=== PATIENT | female | born 1980 | race Caucasian/White ===

== ENCOUNTER → 2021-05-30 09:16 | Outpatient (CLI) | payer OTHER, SELFPAY ==
[2021-05-30 09:51] LABS: Cholesterol 176 mg/dL (200); Glucose 92 mg/dL (74-106); High Density Lipoprotein 73 mg/dL; Triglycerides 107 mg/dL; Very Low Density Lipoprotein 21 mg/dL (5-40)
== END ==
PROVIDERS: PCP Family Medicine
DX: Z13.6 Encounter for screening for cardiovascular disorders (principal); Z13.1 Encounter for screening for diabetes mellitus
CPT/HCPCS: 36415; 80061; 82947

== ENCOUNTER 2022-04-02 16:04 | Emergency (ER) | payer OTHER, SELFPAY ==
[2022-04-02 16:05] VITALS: BP 140/88; PULSE 72; RESP 16; TEMP 37.1; O2SAT 100; BMI 25.8
--- NOTE | 2022-04-02 16:18 | VDLE_ITS ---
Reason For Study: pain RIGHT CFV is compressible, spontaneous, phasic, competent and demonstrates normal augmentation. FV is compressible, spontaneous, phasic, competent and demonstrates normal augmentation. POP V is compressible, spontaneous, phasic, competent and demonstrates normal augmentation. T/P Trunk is compressible. PTV is compressible. RT PerV is compressible. Short segment of the GSV in the groin is dilated and noncompressible. SVT is not near the S-F Junction. Varicose veins below the knee are dilated and noncompressible. Procedure This is a venous duplex using B-mode, color flow and spectral Doppler. Exam performed portable in ED. The exam was abbreviated due to the COVID 19 protocol. The exam was diagnostic. A preliminary report was called and/or faxed to Dr. Cortez. VL/Venous Duplex US, Unilateral Interpretation Summary Superficial thrombophlebitis right great saphenous vein in the right groin Superficial thrombophlebitis varicose veins right below knee Abbreviated Covid 19 protocol Ordering Physician: Joselo Cortez Performed By: Danilo Mane RVT
--- NOTE | 2022-04-02 16:21 | EDS_ITS ---
HPI History of Present Illness Chief Complaint: Lower Extremity Injury Informant: patient Narrative Narrative: 41-year-old female presenting to the emergency department with left calf pain. Patient states that she recently took a car ride to [place] and back again. She had developed pain behind her knee when she returned that is now moved down to the calf. Now today she notes some swelling and some redness in the calf region. She denies any significant swelling. No personal history of DVT or PE. She states her father had pulmonary embolisms with he had lung cancer. PFSH PFSH Medical History no medical history Home Medications apixaban 2.5 mg tablet (Eliquis) 2.5 mg PO BID #90 tabs 04/02/22 [Rx Last Taken Unknown] Allergy/AdvReac Type Severity Reaction Status Date / Time cefaclor [From Ceclor] Allergy Hives Verified 04/02/22 16:08 ciprofloxacin [From Cipro] Allergy Hives Verified 04/02/22 16:08 ofloxacin [From Floxin] Allergy Hives Verified 04/02/22 16:08 Social History (Updated 04/02/22 @ 16:[address] Joselo Cortez, DO) current gender identity: female Smoking Status: Never smoker ROS ROS ED Constitutional Constitutional ED: Denies chills or weight loss Eyes Eyes: Denies change in vision or diplopia ENT ENT ED: Denies ear pain, rhinorrhea or sore throat Cardiovascular Cardiovascular: Denies chest pain, orthopnea, palpitations or racing heartbeat Respiratory/Chest Respiratory/Chest: Denies cough, dyspnea or orthopnea Gastrointestinal Gastrointestinal: Denies abdominal pain, diarrhea, nausea or vomiting Genitourinary Genitourinary ED: Denies dysuria, hematuria or urinary frequency Musculoskeletal Musculoskeletal: Reports other Details: Left calf pain ; Denies arthralgias or myalgias Integumentary Reports rash; Denies abscess Neurologic Neurologic: Denies headache(s) or weakness Psychiatric Psychiatric: Denies anxiety, depression, suicidal ideation or suicidal thoughts Endocrine Endocrinology: Denies polydipsia, polyphagia or polyuria Allergic/Immunologic Allergic/Immunologic ED: Denies mouth swelling, tongue swelling or urticaria EXAM Physical Exam Const Vital Signs: 04/02/22 16:05 Temperature 98.8 F Temperature Source Temporal Pulse Rate 72 Respiratory Rate 16 Blood Pressure 140/88 H Blood Pressure Mean 105 Pulse Ox 100 Oxygen Delivery Method Room Air Positive well nourished and well developed General Appearance ED: well developed HEENT Reports normocephalic, head/scalp atraumatic and moist mucous membranes Eyes PERRL and EOMs intact bilaterally Neck no lymphadenopathy, supple and no JVD Resp normal respiratory effort and clear to auscultation bilaterally Cardio regular rate, regular rhythm and no murmurs GI normal to inspection, nondistended, normoactive bowel sounds and non-tender Palpation: soft Back/Spine no CVA tenderness and normal ROM Extremity Extremity Narrative: Located on the medial aspect of the right calf is an area of erythema increased warmth and mild swelling. It has mild tenderness to palpation. Do not appreciate significant swelling at the ankles when comparing to the left. General Extremety ED: Negative for edema General Extremity: Negative for edema Neuro oriented x3 and CN's II-XII intact bilaterally Sensorium / Orientation: alert Motor Exam: strength 5/5 throughout Psych mental status grossly normal Mood & Affect: Negative for depressed or tearful Skin no wounds Trauma: Negative for abrasion or laceration MDM MDM MDM Narrative Medical decision making narrative: Duplex ultrasound demonstrates superficial thrombophlebitis of the calf. There is also a segment approximately 5 cm long of the greater saphenous vein that is clotted. This is farther than 3 cm away from the femoral vein. Using up-to-date, the expert consensus is prophylactic dose of anticoagulant for 45 days. I will also set her up for an ultrasound to be done on Friday for comparison. Follow-up with primary care Discharge Plan Triage Chief Complaint: Lower Extremity Injury ED Provider: Joselo Cortez Dx/Rx/DC Orders Clinical Impression: Superficial thrombophlebitis, Greater saphenous vein embolism Instructions: ED Thrombophlebitis, Superficial Prescriptions: New Eliquis 2.5 mg tablet 2.5 mg PO BID Qty: 90 0RF Other Ambulatory Orders: Venous Duplex US, Unilateral (Routine) Facility: [facility] - Location: [facility] Ordered By: Dr. Joselo Cortez ON-CALL NEEDED: Notify [facility] - Doppler Study Ordered (Stat) Location: None Selected Ordered By: Dr. Joselo Cortez Primary Care Provider: Sami Walter Referrals: Sami Walter MD [Primary Care Provider] - 1 Week Disposition Disposition: Home, Self Care
== END 2022-04-02 17:05 | disposition home or self-care (01) ==
PROVIDERS: Emergency Provider Emergency Medicine; PCP Family Medicine; Visit Provider Emergency Medicine
DX: I82.811 Embolism and thrombosis of superficial veins of right lower extremity (principal)
CPT/HCPCS: 93971; 99282

== ENCOUNTER → 2022-04-05 | Outpatient (CLI) | payer OTHER, SELFPAY ==
--- NOTE | 2022-04-05 12:46 | VDLE_ITS ---
Reason For Study: pain RIGHT CFV is compressible, spontaneous, phasic, competent and demonstrates normal augmentation. FV is compressible, spontaneous, phasic, competent and demonstrates normal augmentation. POP V is compressible, spontaneous, phasic, competent and demonstrates normal augmentation. T/P Trunk is compressible. PTV is compressible. RT PerV is compressible. GSV is compressible from prox thigh to SFJ & from low mid thigh to ankle. GSV is partially compressible at prox thigh to mid thigh. Procedure This is a venous duplex using B-mode, color flow and spectral Doppler. Exam performed in department. The exam was diagnostic. A preliminary report was called and/or faxed to Dr. Walter (PCP) @ [phone] @ 1:15pm. VL/Venous Duplex US, Unilateral Interpretation Summary There is no evidence of right lower extremity deep vein thrombosis. Superficial thrombophlebitis right great saphenous vein proximal to mid thigh. Findings suggest improvement since April 02, 2022 Ordering Physician: Joselo Cortez Referring Physician: Sami Walter Performed By: Alisha Scruggs, YENNI, RVT
== END | disposition home or self-care (01) ==
PROVIDERS: PCP Family Medicine; Referring Provider Emergency Medicine; Visit Provider Emergency Medicine
DX: M79.604 Pain in right leg (principal)
CPT/HCPCS: 93971

== ENCOUNTER → 2022-12-02 | Outpatient (CLI) | payer OTHER, SELFPAY ==
--- NOTE | 2022-12-02 10:40 | BI_ITS ---
MAMMOGRAPHY - BILATERAL SCREENING REASON FOR EXAM: Female, 42 years old. Routine annual screening examination. PERTINENT HISTORY: Grandmother with breast cancer. TECHNIQUE: Digital bilateral breast roger (3D mammographic acquisition) in the CC and MLO projections. 2-D mediolateral oblique (MLO) and craniocaudad (CC) views of both breasts were obtained. CAD: Full Field Digital Mammography with Computer Added Detection was performed. COMPARISON: Comparison is made with prior outside examination of November 27, 2021. FINDINGS: Breast Composition: The breasts are extremely dense, which lowers the sensitivity of mammography. There are no dominant masses or suspicious calcifications. Stable benign appearing bilateral axillary lymph nodes. No other significant abnormalities are identified. There has been no significant change since the prior study. BI/SCRN MAMM (CAD)W/ROGER BILAT IMPRESSION: Stable bilateral screening mammogram. Yearly follow-up mammogram recommended. (A) ASSESSMENT CATEGORY: BIRADS Category 2: Benign. A letter regarding these results will be sent to the patient by the facility within 30 days. Approximately 10% of breast cancers are not detected by mammography. A normal mammogram should not delay biopsy of a clinically suspicious abnormality. [id number] Electronically Signed: Demetri Baker MD at 14:02 EDT ,
== END | disposition home or self-care (01) ==
LOC: OPBI 10:38
PROVIDERS: PCP Family Medicine
DX: Z12.31 Encounter for screening mammogram for malignant neoplasm of breast (principal); Z80.3 Family history of malignant neoplasm of breast
CPT/HCPCS: 77063; 77067

== ENCOUNTER → 2023-01-27 | Outpatient (CLI) | payer OTHER, SELFPAY ==
[2023-01-27 10:44] LABS: Absolute Neutrophil Count 6.2 X10^3/uL (2.0-7.7); Basophil# 0.07 X10^3/uL; Basophil% 0.8 % (0-1); Eosinophil# 0.06 X10^3/uL; Eosinophils% 0.7 % (0-5); Hematocrit 39.1 % (37-47); Hemoglobin 12.8 g/dL (12.0-15.0); Lymphocyte % 22.9 % (19-41); Mean Corp Hgb Conc 32.7 g/dL (32-36); Mean Corpuscular Volume 85.6 fL (81-99); Mean Platelet Vol. 12.1 fl (6.2-12.0); Monocyte# 0.68 X10^3/uL; Monocyte% 7.4 % (0-10); NRBC Flagged by Analyzer 0 % (0-5); Neutrophil # 6.23 X10^3/uL (2.7-7.7); Platelet Count 265 K/mm3 (150-450); RBC Distribution Width CV 16.2 % (11.6-14.6); RBC Distribution Width SD 50.4 fl (35.1-43.9); Red Blood Count 4.57 M/mm3 (4.2-5.4); White Blood Count 9.2 K/mm3 (4.4-11.0)
[2023-01-27 12:10] LABS: hCG Titer Quant., Serum < 1 mIU/mL (1-3)
[2023-01-27 12:24] LABS: Estradiol 188.6 pg/mL; Follicle Stimulating Hormone 5.6 mIU/mL; Luteinizing Hormone 2.7 mIU/mL; Prolactin 5.9 ng/mL; T4 Free Direct 1.02 ng/dL (0.76-1.46); Thyroid Stim Hormone (TSH) 0.76 uIU/mL (0.358-3.74)
[2023-01-30 15:08] LABS: Testosterone, % Free 1.31 % (0.50-2.80); Testosterone, Free 0.25 ng/dL (0.10-0.85); Testosterone, Total 19 ng/dL (4-50)
== END | disposition home or self-care (01) ==
LOC: WOBLAB 10:30
PROVIDERS: PCP Family Medicine; Visit Provider Nurse Practitioner Women's Health
DX: N93.9 Abnormal uterine and vaginal bleeding, unspecified (principal)
CPT/HCPCS: 36415; 82670; 83001; 83002; 84146; 84402; 84403; 84439; 84443; 84702; 85025

== ENCOUNTER → 2023-07-17 | Outpatient (CLI) | payer OTHER, SELFPAY ==
[2023-07-17 09:43] LABS: Anion Gap 0 (5-15); BUN 13 mg/dL (7-18); BUN/Creat Ratio 14.4 RATIO (10-20); Calcium,Total 8.5 mg/dL (8.5-10.1); Chloride 109 mmol/L (98-107); Cholesterol 176 mg/dL (200); EST Glomerular Filtration Rate 72 mL/min (>60); Est Glom Filt Rate - Afr Amer 87 mL/min (>60); Glucose 85 mg/dL (74-106); High Density Lipoprotein 62 mg/dL; Potassium 3.8 mmol/L (3.5-5.1); Sodium Level 139 mmol/L (136-145); Triglycerides 58 mg/dL; Very Low Density Lipoprotein 12 mg/dL (5-40)
== END | disposition home or self-care (01) ==
LOC: PAVLAB 09:03
PROVIDERS: PCP Family Medicine
DX: Z00.00 Encounter for general adult medical examination without abnormal findings (principal); Z13.1 Encounter for screening for diabetes mellitus; Z13.6 Encounter for screening for cardiovascular disorders
CPT/HCPCS: 36415; 80048; 80061

== ENCOUNTER → 2023-12-10 | Outpatient (CLI) | payer OTHER, SELFPAY ==
--- NOTE | 2023-12-10 14:12 | BI_ITS ---
MAMMOGRAPHY - BILATERAL SCREENING REASON FOR EXAM: Female, 43 years old. Routine annual screening examination. PERTINENT HISTORY: Grandmother with breast cancer. TECHNIQUE: Digital bilateral breast roger (3D mammographic acquisition) in the CC and MLO projections. 2-D mediolateral oblique (MLO) and craniocaudad (CC) views of both breasts were obtained. CAD: Full Field Digital Mammography with Computer Added Detection was performed. COMPARISON: Comparison is made with prior examination dated December 02, 2022. FINDINGS: Breast Composition: The breasts are extremely dense, which lowers the sensitivity of mammography. There are no dominant masses or suspicious calcifications. No other significant abnormalities are identified. There has been no significant change since the prior study. BI/SCRN MAMM (CAD)W/ROGER BILAT IMPRESSION: Stable bilateral screening mammogram. Yearly follow-up mammogram recommended. (A) ASSESSMENT CATEGORY: BIRADS Category 1: Negative. A letter regarding these results will be sent to the patient by the facility within 30 days. Approximately 10% of breast cancers are not detected by mammography. A normal mammogram should not delay biopsy of a clinically suspicious abnormality. [id number] Electronically Signed: Demetri Baker MD at 15:19 EDT ,
== END | disposition home or self-care (01) ==
LOC: OPBI 14:10
PROVIDERS: PCP Family Medicine
DX: Z12.31 Encounter for screening mammogram for malignant neoplasm of breast (principal)
CPT/HCPCS: 77063; 77067

== ENCOUNTER → 2024-07-05 | Outpatient (CLI) | payer OTHER, SELFPAY ==
[2024-07-13 11:10] LABS: HPV APTIMA, High Risk Negative (Negative)
== END | disposition home or self-care (01) ==
LOC: LABSPEC 16:54
PROVIDERS: PCP Internal Medicine; Referring Provider Obstetrics & Gynecology; Visit Provider Obstetrics & Gynecology
DX: Z12.4 Encounter for screening for malignant neoplasm of cervix (principal)
CPT/HCPCS: 87624; 88175; G0145

== ENCOUNTER 2024-08-18 10:51 | Day surgery (SDC) | payer OTHER, SELFPAY ==
[2024-08-18] VITALS (8 sets, daily range): BP systolic 96–120; BP diastolic 62–94; PULSE 70–95; RESP 16–18; TEMP 36.4–37.1; O2SAT 98–100; BMI 25.7
--- NOTE | 2024-08-18 11:01 | PCM.PRE.AN2 ---
ASA Classification* ASA Classification ASA Classification: 2 Assessment & Plan Anesthesia* Anesthesia Assessment Anesthesia Assessment: Discussed sedation and/or anesthesia options, risks, benefits, and alternatives with patient/parents/legal guardian/POA. Questions invited. The patient/parents/legal guardian/POA seems to understand and agrees to proceed with anesthesia plan. Reviewed the physical assessment, medical history, allergy history and patient home medications list prior to surgery/procedure/anesthetic and documented any changes. Performed airway and anesthesia risk assessments. Anesthesia Type Anesthesia Type: MAC Anesthesia Focused Assessment* Airway Assessment Mouth opens: >3 cm Mallampati Score: II Focused Labs Anesthesia Preop lab: CBC WBC 6.8 K/mm3 (4.4-11.0) 06/07/24 14:55 RBC 3.90 M/mm3 (4.2-5.4) L 06/07/24 14:55 Hgb 10.8 g/dL (12.0-15.0) L 06/07/24 14:55 Hct 34.8 % (37-47) L 06/07/24 14:55 Plt Count 302 K/mm3 (150-450) 06/07/24 14:55 CHEMISTRY Potassium 4.3 mmol/L (3.5-5.1) 06/07/24 14:55 Sodium 139 mmol/L (136-145) 06/07/24 14:55 Phosphorus 1.9 mg/dL (2.5-4.9) L 06/07/24 14:55 BUN 15 mg/dL (7-18) 06/07/24 14:55 Creatinine 0.93 mg/dL (0.55-1.02) 06/07/24 14:55 Glucose 102 mg/dL (74-106) 06/07/24 14:55 TSH 0.76 uIU/mL (0.358-3.74) 01/27/23 10:31 COAG HCG, Quant < 1 mIU/mL (1-3) 01/27/23 10:31 Pre-Assessment Diagnosis/Proposed Procedure Planned Operative Procedure(s): CSCOPE OA Anesthesia History Anesthesia History - healthcare representative: Anesthesia History - healthcare representative Hx Hospitalization No 08/13/24 15:07 Any Problems With Anesthesia No 08/13/24 15:07 Cholinesterase deficiency No 08/13/24 15:07 You/Your Family Experience No 08/13/24 15:07 fever (hyperthermia) with Relationship Recent Exposure to Contagious Disease Does patient have nerve No 08/13/24 15:07 stimulator Patient instructed to have device shut off --Does patient have Pacemaker or ICD? When Was Last Pacemaker Check QUESTION #4 FULL TEXT: You/Your Family Experience fever (hyperthermia) with Anesthesia Last Oral Intake Last Oral intake: Last Oral Intake NPO since Meds taken in AM with sips of water? Meds patient instructed to take am of surgery PONV PONV - healthcare representative: PONV - healthcare representative Female Yes 08/13/24 15:07 HX of Motion Sickness No 08/13/24 15:07 HX of N/V After Surgery No 08/13/24 15:07 Non-Smoker Yes 08/13/24 15:07 Duration of Surgery greater No 08/13/24 15:07 than 60 minutes Number of Risk Factors 2 08/13/24 15:07 PONV Score Moderate Risk 08/13/24 15:07 Height & Weight Height & Weight: Anesthesia: Height & Weight Height 5 ft 6 in 07/05/24 15:30 Respiratory Assessment Respiratory Assessment - healthcare representative: Respiratory Tract Infection Hx - healthcare representative Hx Respiratory Tract Infection No 08/13/24 15:07 STOP Sleep Apnea STOP Sleep Apnea - healthcare representative: STOP Sleep Apnea - healthcare representative Hx Hypertension No 08/13/24 15:07 Hx Sleep Apnea No 08/13/24 15:07 CPAP BIPAP Do you snore loudly (louder No 08/13/24 15:07 than talking or can be heard Do you often feel tired/ No 08/13/24 15:07 fatigued/ sleepy during daytime? Has anyone observed you stop No 08/13/24 15:07 breathing during sleep? STOP Results Negative 08/13/24 15:07 QUESTION #5 FULL TEXT : Do you snore loudly (louder than talking or can be heard through closed doors)? 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 Specify any problems Hx of Preganancy in last 3 No 08/13/24 15:07 Months Nurse Filling Out Transfusion DSCHRIBER 08/13/24 15:07 & Questions: Date: 08/13/24 08/13/24 15:07 Time: 15:08 08/13/24 15:07 Patient unable to answer at this time (ie. confused, unrespo /Reproduction History /Reproductive History - healthcare representative: /Reproductive Hx- healthcare representative Hx Now No 08/13/24 15:07 Gestational Age (in weeks): EDC: Hx Hx Para Hx Section SAB No 08/13/24 15:07 PFSH Medical History Wears glasses Alcohol use Back pain Migraine headache Non-smoker Encounter to establish care Superficial vein thrombosis Family history of AML (acute myeloid leukemia) Preventative health care Colon cancer screening Jaundice Viral hepatitis DVT (deep venous thrombosis) Home Medications ?Medication ?Instructions ?Recorded ?Last Taken ?Type aspirin 81 mg tablet,delayed 81 mg PO DAILY 07/06/23 Unknown History release (Adult Aspirin Regimen) fluticasone propionate 50 1 spray intranasal DAILY PRN 07/06/23 Unknown History mcg/actuation nasal allergy symptoms spray,suspension Allergy/AdvReac Type Severity Reaction Status Date / Time cefaclor (From Ceclor) Allergy Hives Verified 08/13/24 15:06 ciprofloxacin (From Cipro) Allergy Hives Verified 08/13/24 15:06 ofloxacin (From Floxin) Allergy Hives Verified 08/13/24 15:06 Family History Mother Rheumatoid arthritis Leukemia Essential thrombocytopenia Father Lung cancer Grandfather Myocardial infarction, Onset Age: 66 Surgical History H/O adenoidectomy History of tonsillectomy Social History adopted: No household members: spouse and children current occupational status: employed current occupation: [employer], [employer] pets and animals: Yes (1) pets and animals: dog(s) history of recent travel: No sexually active: Yes Smoking Status: Never smoker alcohol intake: current alcohol intake frequency: a few times a month details: 2 per week substance use type: does not use caffeine: Yes (2) Type: coffee what type of physical activity do you participate in: running frequency: 3-4 times per week javid/rastafari: Yazidi seatbelt use: always do you feel safe at home: Yes additional social history: - Michael Review of Systems (Anesthesia) ROS Narrative System reviewed and no additional complaints, except as documented.
[2024-08-18 11:33] LABS: Internal QC Validated? YES +Cl - CLEAR BKGD; Pregnancy, Urine Negative Negative
--- NOTE | 2024-08-18 12:44 | PCM.HP.STD ---
[facility] - General General Date of Admission: 08/18/24 Date of Service: 08/18/24 Chief Complaint: Screening colonoscopy HPI Narrative SANG VELASQUEZ, is a 44 F who presents today for for screening colonoscopy. She has no significant past medical history and does not take any medicines on a daily basis. [facility] Medical History Wears glasses Alcohol use Back pain Migraine headache Non-smoker Encounter to establish care Superficial vein thrombosis Family history of AML (acute myeloid leukemia) Preventative health care Colon cancer screening Jaundice Viral hepatitis DVT (deep venous thrombosis) Home Medications ?Medication ?Instructions ?Recorded ?Last Taken ?Type aspirin 81 mg tablet,delayed 81 mg PO DAILY 07/06/23 Unknown History release (Adult Aspirin Regimen) fluticasone propionate 50 1 spray intranasal DAILY PRN 07/06/23 Unknown History mcg/actuation nasal allergy symptoms spray,suspension Allergy/AdvReac Type Severity Reaction Status Date / Time cefaclor (From Ceclor) Allergy Hives Verified 08/18/24 11:08 ciprofloxacin (From Cipro) Allergy Hives Verified 08/18/24 11:08 ofloxacin (From Floxin) Allergy Hives Verified 08/18/24 11:08 Family History Mother Rheumatoid arthritis Leukemia Essential thrombocytopenia Father Lung cancer Grandfather Myocardial infarction, Onset Age: 66 Surgical History H/O adenoidectomy History of tonsillectomy Social History adopted: No household members: spouse and children current occupational status: employed current occupation: [employer], [employer] pets and animals: Yes (1) pets and animals: dog(s) history of recent travel: No sexually active: Yes Smoking Status: Never smoker alcohol intake: current alcohol intake frequency: a few times a month details: 2 per week substance use type: does not use caffeine: Yes (2) Type: coffee what type of physical activity do you participate in: running frequency: 3-4 times per week javid/sabianism: Faith seatbelt use: always do you feel safe at home: Yes additional social history: - Michael ROS Constitutional Constitutional: Denies fatigue, fever(s), poor appetite, weight gain or weight loss Gastrointestinal Gastrointestinal: Denies belching, bloating, change in bowel habits, change in stool character, chewing difficulty, coffee ground emesis, constipation, cramping, diarrhea, dyspepsia, dysphagia, early satiety, excessive flatus, fecal incontinence, heartburn, hematemesis, hematochezia, hemorrhoids, loose stools, melena, nausea, odynophagia, rectal bleeding, tenesmus, vomiting or weight changes Vital Signs Vital Signs Vital Signs: 08/18/24 11:09 08/18/24 11:09 Temperature 98.7 F Temperature Source Temporal Pulse Rate 95 Respiratory Rate 16 Respiratory Pattern Normal Blood Pressure 120/82 H Blood Pressure Mean 94 Blood Pressure Source Monitor Blood Pressure Position Semi-Fowlers Blood Pressure Location Left Arm Pulse Ox 100 Oxygen Delivery Method Room Air Weight Weight: 159 lb Body Mass Index (BMI) 25.7 Physical Exam Const alert, oriented x3, no apparent distress and healthy appearing General Appearance: cooperative GI normal to inspection, nondistended, normoactive bowel sounds, soft to palpation, non-tender and non-distended Percussion: normal to percussion Rectal Exam: deferred Results Lab / Micro Data Labs: Laboratory Results - last 24 hr 08/18/24 11:00: Urine Test Negative Assessment & Plan Assessment/Plan (1) Colon cancer screening: PLAN: 44-year-old comes in for screening colonoscopy. Patient was explained alternatives, risk, benefits including not withstanding bleeding, infection, sepsis, perforation, need for emergent surgery and . Patient will have an ASA of 3.
--- NOTE | 2024-08-18 13:07 | OP.CCLET_ITS ---
08/18/2024 Kassandra Wilkins MD [address] [place] [address] [place] [address] Re : Colonoscopy procedure for Maisha Arauz Dear Dr. Wilkins This procedure was performed on Sunday, August 18, 2024. My impressions and recommendations are as follows: Impressions : - The entire examined colon is normal on direct and retroflexion views. - No specimens collected. Recommendations : - Discharge patient to home. - Resume previous diet today. - Continue present medications. - Repeat colonoscopy in 10 years for screening purposes. My findings are described in the full procedure note, which is enclosed. If I can be of further assistance, please feel free to contact me at . Sincerely, Antoni Friend, 08/18/2024 1:07:07 PM This report has been signed electronically.
--- NOTE | 2024-08-18 13:07 | OP.COLON_ITS ---
Patient Name: Maisha Arauz Procedure Date: 08/18/2024 12:48 PM Date of : 1980 Age: 44 Procedure: Colonoscopy Indications: Screening for colorectal malignant neoplasm Providers: Antoni Carroll DO Referring MD: Kassandra Wilkins MD Medicines: Monitored Anesthesia Care Patient Profile: This is a 44 year old female. Refer to note in patient chart for documentation of history and physical. Last Colonoscopy: none. The patient's first colonoscopy is today. Complications: No immediate complications. Procedure: Pre-Anesthesia Assessment: - Prior to the procedure, a History and Physical was performed, and patient medications and allergies were reviewed. The patient is competent. The risks and benefits of the procedure and the sedation options and risks were discussed with the patient. All questions were answered and informed consent was obtained. Patient identification and proposed procedure were verified by the physician in the pre-procedure area. Mental Status Examination: alert and oriented. Airway Examination: normal oropharyngeal airway and neck mobility. Respiratory Examination: clear to auscultation. CV Examination: normal. Prophylactic Antibiotics: The patient does not require prophylactic antibiotics. Prior Anticoagulants: The patient has taken no anticoagulant or antiplatelet agents except for NSAID medication. ASA Grade Assessment: II - A patient with mild systemic disease. After reviewing the risks and benefits, the patient was deemed in satisfactory condition to undergo the procedure. The anesthesia plan was to use monitored anesthesia care (MAC). Immediately prior to administration of medications, the patient was re-assessed for adequacy to receive sedatives. The heart rate, respiratory rate, oxygen saturations, blood pressure, adequacy of pulmonary ventilation, and response to care were monitored throughout the procedure. The physical status of the patient was re-assessed after the procedure. After I obtained informed consent, the scope was passed under direct vision. Throughout the procedure, the patient's blood pressure, pulse, and oxygen saturations were monitored continuously. The Colonoscope was introduced through the anus and advanced to the cecum, identified by appendiceal orifice and ileocecal valve. The colonoscopy was performed without difficulty. The patient tolerated the procedure well. The quality of the bowel preparation was adequate. The ileocecal valve, appendiceal orifice, and rectum were photographed. Scope In: 12:53:34 PM Scope Out: 1:02:42 PM Total Procedure Duration Time 0 hours 9 minutes 8 seconds Findings: The perianal and digital rectal examinations were normal. The entire examined colon appeared normal on direct and retroflexion views. Impression: - The entire examined colon is normal on direct and retroflexion views. - No specimens collected. Recommendation: - Discharge patient to home. - Resume previous diet today. - Continue present medications. - Repeat colonoscopy in 10 years for screening purposes. Procedure Code(s): --- Professional --- G0121, Colorectal cancer screening; colonoscopy on individual not meeting criteria for high risk CPT copyright 2021 [employer]. All rights reserved. The codes documented in this report are preliminary and upon concrete mason review may be revised to meet current compliance requirements. Antoni Carroll DO 08/18/2024 1:07:07 PM This report has been signed electronically. Number of Addenda: 0 Note Initiated On: 08/18/2024 12:48 PM
--- NOTE | 2024-08-18 13:11 | PCM.POST.ANE ---
Anesthesia: Postop Eval I Current Vital Signs Temperature: 97.8 F Pulse Rate: 70 Blood Pressure: 96/71 Respiratory Rate: 18 Pulse Ox: 100 Oxygen Delivery Method: Room Air Assessment Airway patent: Yes Spontaneous unlabored respirations: Yes Mental status: Asleep nausea: No Vomiting: No Anesthesia Complication: No Fluid Hydration Crystalloid volume administer (ml): 60 Total IV fluid infused: 60 Progress Note Anesthesia document: Postop Eval 1 completed: Yes
--- NOTE | 2024-08-18 13:42 | PCM.POSTANE2 ---
Anesthesia Postop Eval I Sum Postop Eval Completion status Anesthesia document: Postop Eval 1 completed: Yes Anesthesia Postop Eval I Summary Anesthesia Postop Eval I Summary: Anesthesia Postop Eval I: Assessment Summary Airway patent Yes 08/18/24 13:12 [email or web address] Spontaneous unlabored Yes 08/18/24 13:12 [email or web address] respirations Mental status Asleep 08/18/24 13:12 [email or web address] nausea No 08/18/24 13:12 [email or web address] Vomiting No 08/18/24 13:12 [email or web address] Anesthesia Postop Eval I: Fluid Summary Crystalloid volume administer 60 08/18/24 13:12 [email or web address] (ml) Colloids volume administered ( ml) Blood Product volume administered (ml) Total IV fluid infused 60 08/18/24 13:12 [email or web address] Anesthesia Postop Eval I: Summary Notes Anesthesia Complication No 08/18/24 13:12 [email or web address] Anesthesia Complication Comment: Post-operative progress note Anesthesia: Postop Eval II Evaluation Mental status: Awake Pain Level: 0 nausea: No Vomiting: No
== END 2024-08-18 13:59 | disposition home or self-care (01) ==
LOC: EN 10:52 → AC 10:56
PROVIDERS: Anesthesiology; PCP Internal Medicine; Referring Provider Internal Medicine; Visit Provider Internal Medicine Gastroenterology
PROC: 0DJD8ZZ Inspection of Lower Intestinal Tract, Via Natural or Artificial Opening Endoscopic (ICD-10-PCS; CPT 45378; principal; 2024-08-18 11:55)
DX: Z12.11 Encounter for screening for malignant neoplasm of colon (principal); Z79.82 Long term (current) use of aspirin; Z86.718 Personal history of other venous thrombosis and embolism
CPT/HCPCS: 45378; 81025; A4216; J2405

== ENCOUNTER → 2024-12-17 | Outpatient (CLI) | payer OTHER, SELFPAY ==
--- NOTE | 2024-12-17 09:09 | BI_ITS ---
EXAM: SCRN MAMM (CAD)W/ROGER BILAT 12/17/2024 CLINICAL HISTORY: F, Age 44 y/o , SCREENING MAMMOGRAM TECHNIQUE:
== END | disposition home or self-care (01) ==
LOC: OPBI 09:07
PROVIDERS: PCP Internal Medicine; Referring Provider Obstetrics & Gynecology; Visit Provider Obstetrics & Gynecology
DX: Z12.31 Encounter for screening mammogram for malignant neoplasm of breast (principal)
CPT/HCPCS: 77063; 77067